=== PATIENT | female | born 1940 | race Caucasian/White ===

== ENCOUNTER 2017-09-21 10:55 | Emergency (ER) | payer MEDICARE, OTHER ==
[~2017-09-21] VITALS: Ht 154.9 cm; Wt 90.7 kg
[~2017-09-21 10:55] MED LIST: ACET325 PO; ASPI325EC; BENZ100A PO; CITA20 PO; Celexa40 MG PO; ESTROGEN; FLUT.05NI; METO50ER; NITR.4SL SL; PANT40 PO; QVAR7.3 G1 IH; VITAMIN B PO; VITAMIN D PO
[2017-09-21 12:31] LABS: BASOPHILS ABSOLUTE AUTO 0.05 K/mm3 (0.00-0.23); BASOPHILS PERCENT AUTO 1 % (0-2); EOSINOPHILS ABSOLUTE AUTO 0.27 K/mm3 (0.00-0.68); EOSINOPHILS PERCENT AUTO 3 % (0-6); Hematocrit 44.9 % (33.0-51.0); Hemoglobin 15.2 g/dL (11.5-16.0); IMMATURE GRAN ABSOLUTE AUTO 0.03 K/mm3 (0.00-0.10); IMMATURE GRAN PERCENT AUTO 0 % (0-1); LYMPHOCYTES ABSOLUTE AUTO 1.68 K/mm3 (0.84-5.20); LYMPHOCYTES PERCENT AUTO 20 % (21-46); MONOCYTES ABSOLUTE AUTO 0.83 K/mm3 (0.16-1.47); MONOCYTES PERCENT AUTO 10 % (4-13); Mean Corpuscular HGB 30.1 pg (26.0-34.0); Mean Corpuscular HGB Conc 33.9 g/dL (31.5-36.5); Mean Corpuscular Volume 89 fL (80-100); Mean Platelet Volume 9.4 fL (9.1-12.4); NEUTROPHILS ABSOLUTE AUTO 5.71 K/mm3 (1.96-9.15); NEUTROPHILS PERCENT AUTO 67 % (41-73); Platelet Count 321 K/mm3 (150-400); RDW Coefficient Variation 13.5 % (11.7-14.2); RDW Standard Deviation 43.8 fL (35.1-46.3); Red Blood Cell Count 5.05 M/mm3 (3.80-5.20); White Blood Cell Count 8.57 K/mm3 (4.00-11.30)
[2017-09-21 13:00] LABS: Troponin I <0.015 ng/mL (0.000-0.040)
[2017-09-21 14:44] LABS: Albumin, Blood 3.8 g/dL (3.4-5.0); Albumin/Globulin Ratio 1.1 (0.8-1.8); Alk Phos 96 U/L (50-136); Anion Gap 9 mmol/L (6-16); Aspartate Aminotrans (AST/SGOT 20 U/L (12-37); Bilirubin, Total 0.5 mg/dL (0.1-1.0); Blood Urea Nitrogen 22 mg/dL (8-24); Bun/Creatinine Ratio 17.6 (12.0-20.0); CO2, Blood 25 mmol/L (21-32); Calcium, Blood 9.2 mg/dL (8.5-10.1); Chloride, Blood 100 mmol/L (98-108); Creatinine, Blood 1.25 mg/dL (0.40-1.00); Globulin, Blood 3.6 g/dL (2.2-4.0); Glomerular Filtration Rate 44 (60-); Glucose, Blood 107 mg/dL (70-99); Potassium, Blood 4.3 mmol/L (3.5-5.5); Sodium, Blood 134 mmol/L (136-145); Total Protein, Blood 7.4 g/dL (6.4-8.2)
[2017-09-21 16:07] LABS: Alanine Aminotransfer (ALT/SGP 13 U/L (12-78)
[2017-09-21] MEDS ORDERED: PRED20 PO (16:09)
== END 2017-09-21 16:30 | disposition home or self-care (01) ==
LOC: ER 10:55
PROVIDERS: Emergency Medicine
DX: R55 Syncope and collapse (principal); J44.9 Chronic obstructive pulmonary disease, unspecified; R05 Cough; Z88.8 Allergy status to other drugs, medicaments and biological substances; Z79.899 Other long term (current) drug therapy; Z87.891 Personal history of nicotine dependence
CPT/HCPCS: 36415; 71046; 80053; 82947; 83880; 84484; 85025; 93005; 93010; 96361; 96374; 99283; J2405; J7030

== ENCOUNTER 2021-12-31 08:09 | Day surgery (SDC) | payer MEDICARE, OTHER ==
[~2021-12-31] VITALS: Ht 154.9 cm; Wt 90.0 kg
[~2021-12-31 08:09] MED LIST changes: +ASPI81CH PO; +AZELASTINE137 MCG/01; +B-121000 MC7 PO; +CELEXA40 M1 PO; +LOSA25 PO; +MONT10T PO; +PRED20 PO; +Ventolin5 MG/1 ML INH; +Vitamin D1000 UNI1 PO
[2021-12-31] MEDS ORDERED: Isosorbide Mono30 MG PO (08:45)
--- NOTE | 2021-12-31 12:30 | NUR ---
AIR FULLY DEPLOYED FROM TR BAND. NO BLEEDING OR HEMATOMA NOTED. VSS. NADN. DAUGHTER AT BEDSIDE. CALL LIGHT WITHIN REACH
--- NOTE | 2021-12-31 12:45 | NUR ---
PT AMBULATES TO RESTROOM AND BACK WITHOUT DIFF. PT DRESSES SELF WITHOUT DIFF. R RADIAL TR BAND REMOVED. CLOTH DOT APPLIED WITH SPLINT. NO BLEEDING NOTED. VSS. PT IV DC'D. CATH INTACT. PRESURRE DSG APPLIED. PT AND DAUGHTER VERBALIZES UNDERSTANDING WRITTEN AND VERBAL INSTRUCTIONS. PT DC TO HOME VIA WC BY DTR.
== END 2021-12-31 12:40 | disposition home or self-care (01) ==
LOC: MHTC 08:09
DX: I20.0 Unstable angina (principal); I12.9 Hypertensive chronic kidney disease with stage 1 through stage 4 chronic kidney disease, or unspecified chronic kidney disease; N18.30 Chronic kidney disease, stage 3 unspecified; J44.9 Chronic obstructive pulmonary disease, unspecified; K21.9 Gastro-esophageal reflux disease without esophagitis; Z87.891 Personal history of nicotine dependence; Z79.82 Long term (current) use of aspirin; Z79.899 Other long term (current) drug therapy
CPT/HCPCS: 76937; 93454; 99152; 99153; C1769; C1887; C1894; J1644; J2250; J3010; J7030; J7040; Q9967

== ENCOUNTER → 2022-10-19 | Outpatient (CLI) | payer MEDICARE, OTHER ==
[~2022-10-19] MED LIST changes: +ACET80; +ALBU8HFA2; +Isosorbide Mono30 MG PO
== END | disposition home or self-care (01) ==
LOC: LAB SHORT 13:43 → PLD 13:43 → LAB 13:43
DX: L72.0 Epidermal cyst (principal); R20.8 Other disturbances of skin sensation
CPT/HCPCS: 88304

== ENCOUNTER 2023-08-17 06:39 | Day surgery (SDC) | payer OTHER ==
[~2023-08-17] VITALS: Ht 154.9 cm; Wt 91.0 kg
[~2023-08-17 06:39] MED LIST changes: +ACET500 PO; -ALBU8HFA2; -ASPI81CH PO; +AZELASTINE137 MCG/06; +Aspir 8181 MG PO; +EFUDEX40 GM TOP; +ESTRADIOL1 MG PO; +FAMO20 PO; +MIRALAX17 GM; +OZEMPIC; +PROTONIX4010 PO; +Triamcinolone A15 G3 TOP; +Ventolin/Prove6.7 GM INH
[2023-08-17] MEDS ORDERED: FORMOTEROL20 MCG/2 M (06:59)
[2023-08-17] MEDS ORDERED: SENNA LAXATIVE8.6 MG PO (07:01)
[2023-08-17] MEDS ORDERED: BREZTRI AEROS10.7 GM (07:02)
[2023-08-17 10:54] VITALS: BP 129/94
--- NOTE | 2023-08-17 11:04 | NUR ---
08/17/23 1104 Jenn Jefferson 0925: CONSULTED DR LIN D/T IRREGULAR HEART RATE, PT DENIES SYMPTOMS OF HEART RACING, LIGHTHEADEDNESS, OR OTHER ISSUES. DR LIN STATES PATIENT WAS IN A-FIB DURING PROCEDURE AND NEEDS TO CONSULT HER PRIMARY CARE DOCTOR TODAY ABOUT THIS ISSUE. APICAL PULSE COUNTED 105 BPM. ON MONITOR PULSE RANGES FROM 80-130 BUT DOES NOT SUSTAIN ANY GREATER THAN 110'S. 0945: MANIPULATIVE THERAPY SPECIALIST IN TO SEE PATIENT D/T PATIENT REPORTING SHE FEELS VERY "STRANGE". PATIENT REPORTS TO CHARGE NURSE THAT SHE JUST FEELS WEAK. CHARGE NURSE ADVISES PATIENT HANG OUT A WHILE WHILE MEDICINE WEARS OFF. 1015: PATIENT ASSISTED TO GET DRESSED, HAD POOR BALANCE AND STUMBLED TWICE IN ROOM, RN CATCHING AND PT SITTING IN CHAIR. MD NOTIFIED. PATIENT TRANSFERRED TO STEP DOWN, STILL DENIES SYPTOMS SUCH HEART RACING, DIFFICULTY BREATHING, OR LIGHTHEADEDNESS. HR REMAINS THE SAME RANGING FROM 80-130 BUT NOT SUSTAINING. 1020: CONSULTED DR LIN D/T CONTINUED WEAKNESS, DR LIN STATES PATIENT CAN HANG OUT A WHILE AND SEE IF IMPROVES. 1028: DISCUSSED ABOVE WITH PATIENT, SHE REPORTS SHE IS FEELING CLOSER TO NORMAL AND WOULD LIKE TO GO HOME. RN ENCOURAGED PATIENT TO CONTACT HER PRIMARY CARE DIRECTED BY DR LIN SOON SHE CAN.
--- NOTE | 2023-08-17 12:03 | NUR ---
08/17/23 1203 Shirley Cutler LATE ENTRY 33ML NORMAL SALINE USED TO ELEVATE COLON POLYPS
== END 2023-08-17 10:30 | disposition home or self-care (01) ==
LOC: ORSCSDS 06:39
PROVIDERS: Internal Medicine Gastroenterology
PROC: 0DBN8ZX Excision of Sigmoid Colon, Via Natural or Artificial Opening Endoscopic, Diagnostic (ICD-10-PCS; principal; 2023-08-17 08:00)
PROC: 0DBH8ZX Excision of Cecum, Via Natural or Artificial Opening Endoscopic, Diagnostic (ICD-10-PCS; principal; 2023-08-17 08:00)
PROC: 0DBK8ZX Excision of Ascending Colon, Via Natural or Artificial Opening Endoscopic, Diagnostic (ICD-10-PCS; principal; 2023-08-17 08:00)
DX: Z12.11 Encounter for screening for malignant neoplasm of colon (principal); Z86.010 Personal history of colon polyps; D12.0 Benign neoplasm of cecum; D12.2 Benign neoplasm of ascending colon; D12.5 Benign neoplasm of sigmoid colon; K63.5 Polyp of colon; K63.89 Other specified diseases of intestine; K57.30 Diverticulosis of large intestine without perforation or abscess without bleeding; I12.9 Hypertensive chronic kidney disease with stage 1 through stage 4 chronic kidney disease, or unspecified chronic kidney disease; N18.30 Chronic kidney disease, stage 3 unspecified; Z87.891 Personal history of nicotine dependence; J45.909 Unspecified asthma, uncomplicated; Z79.899 Other long term (current) drug therapy
CPT/HCPCS: 82947; 88305; J2405; J2704; J7120

== ENCOUNTER 2023-08-22 08:08 | Observation (INO) | payer OTHER ==
[~2023-08-22] VITALS: Ht 154.9 cm; Wt 91.5 kg
[~2023-08-22 08:08] MED LIST changes: +BREZTRI AEROS10.7 GM; +FORMOTEROL20 MCG/2 M; +SENNA LAXATIVE8.6 MG PO
[2023-08-22 08:31] LABS: BASOPHILS ABSOLUTE AUTO 0.04 K/mm3 (0.00-0.23); BASOPHILS PERCENT AUTO 0 % (0-2); EOSINOPHILS ABSOLUTE AUTO 0.42 K/mm3 (0.00-0.68); EOSINOPHILS PERCENT AUTO 5 % (0-6); Hematocrit 34.5 % (33.0-51.0); Hemoglobin 11.3 g/dL (11.5-16.0); IMMATURE GRAN ABSOLUTE AUTO 0.04 K/mm3 (0.00-0.10); IMMATURE GRAN PERCENT AUTO 0 % (0-1); LYMPHOCYTES PERCENT AUTO 23 % (21-46); MONOCYTES ABSOLUTE AUTO 0.56 K/mm3 (0.16-1.47); MONOCYTES PERCENT AUTO 6 % (4-13); Mean Corpuscular HGB 31.8 pg (26.0-34.0); Mean Corpuscular HGB Conc 32.8 g/dL (31.5-36.5); Mean Corpuscular Volume 97 fL (80-100); Mean Platelet Volume 9.4 fL (9.1-12.4); NEUTROPHILS ABSOLUTE AUTO 5.85 K/mm3 (1.96-9.15); NEUTROPHILS PERCENT AUTO 65 % (41-73); Platelet Count 242 K/mm3 (150-400); RDW Coefficient Variation 13.2 % (11.7-14.2); RDW Standard Deviation 47.8 fL (35.1-46.3); Red Blood Cell Count 3.55 M/mm3 (3.80-5.20); White Blood Cell Count 9.01 K/mm3 (4.00-11.30)
[2023-08-22 08:51] LABS: Albumin, Blood 2.9 g/dL (3.4-5.0); Albumin/Globulin Ratio 0.9 (0.8-1.8); Bilirubin, Total 0.3 mg/dL (0.1-1.0); Bun/Creatinine Ratio 17.1 (12.0-20.0); Calcium, Blood 8.2 mg/dL (8.5-10.1); Creatinine, Blood 1.52 mg/dL (0.40-1.00); Globulin, Blood 3.1 g/dL (2.2-4.0)
[2023-08-22 11:06] LABS: BASOPHILS ABSOLUTE AUTO 0.02 K/mm3 (0.00-0.23); BASOPHILS PERCENT AUTO 0 % (0-2); EOSINOPHILS ABSOLUTE AUTO 0.11 K/mm3 (0.00-0.68); EOSINOPHILS PERCENT AUTO 1 % (0-6); Hemoglobin 9.4 g/dL (11.5-16.0); IMMATURE GRAN ABSOLUTE AUTO 0.03 K/mm3 (0.00-0.10); IMMATURE GRAN PERCENT AUTO 0 % (0-1); LYMPHOCYTES ABSOLUTE AUTO 1.54 K/mm3 (0.84-5.20); LYMPHOCYTES PERCENT AUTO 18 % (21-46); MONOCYTES ABSOLUTE AUTO 0.59 K/mm3 (0.16-1.47); MONOCYTES PERCENT AUTO 7 % (4-13); Mean Corpuscular HGB Conc 32.4 g/dL (31.5-36.5); Mean Corpuscular Volume 99 fL (80-100); Mean Platelet Volume 9.4 fL (9.1-12.4); NEUTROPHILS ABSOLUTE AUTO 6.08 K/mm3 (1.96-9.15); NEUTROPHILS PERCENT AUTO 73 % (41-73); Platelet Count 208 K/mm3 (150-400); RDW Coefficient Variation 13.4 % (11.7-14.2); RDW Standard Deviation 48.1 fL (35.1-46.3); Red Blood Cell Count 2.94 M/mm3 (3.80-5.20); White Blood Cell Count 8.37 K/mm3 (4.00-11.30)
[2023-08-22 15:11] VITALS: BP 142/54
[2023-08-22 19:38] VITALS: BP 124/45
--- NOTE | 2023-08-23 04:52 | NUR ---
SHIFT SUMMARY PT ADMIT FOR ACUTE BLOOD LOSS ANEMIA. PT HAD COLONOSCOPY ON 08-17-23 WITH 9 POLYPS REMOVED PRECANCEROUS (ADENOCARCINOMA). PT ARRIVED WITH HGB AT 11.3, THEN DROPPED TO 9.4. PRBC'S ADMINISTERED. SCD'S IN PLACE. PT IS ON TELE AND HAS BEEN RUNNING SB IN THE 50'S. PT IS ON CLEAR LIQUID DIET. POSSIBLY COULD BE CHANGED TO FULL LIQUID DIET WITH NO RED COLORING. PT HAS WET OCCASIONAL COUGH. SHE SLEPT MOST OF THE NIGHT. PT HAS BEEN PLEASANT AND COOPERATIVE WITH HER CARE.
[2023-08-23 05:15] LABS: BASOPHILS ABSOLUTE AUTO 0.03 K/mm3 (0.00-0.23); BASOPHILS PERCENT AUTO 1 % (0-2); EOSINOPHILS ABSOLUTE AUTO 0.35 K/mm3 (0.00-0.68); EOSINOPHILS PERCENT AUTO 5 % (0-6); Hematocrit 31.4 % (33.0-51.0); Hemoglobin 10.5 g/dL (11.5-16.0); IMMATURE GRAN ABSOLUTE AUTO 0.02 K/mm3 (0.00-0.10); IMMATURE GRAN PERCENT AUTO 0 % (0-1); LYMPHOCYTES PERCENT AUTO 32 % (21-46); MONOCYTES ABSOLUTE AUTO 0.54 K/mm3 (0.16-1.47); MONOCYTES PERCENT AUTO 8 % (4-13); Mean Corpuscular HGB 31.4 pg (26.0-34.0); Mean Corpuscular HGB Conc 33.4 g/dL (31.5-36.5); Mean Platelet Volume 10.2 fL (9.1-12.4); NEUTROPHILS ABSOLUTE AUTO 3.48 K/mm3 (1.96-9.15); NEUTROPHILS PERCENT AUTO 53 % (41-73); Platelet Count 208 K/mm3 (150-400); RDW Coefficient Variation 15.8 % (11.7-14.2); RDW Standard Deviation 54.9 fL (35.1-46.3); Red Blood Cell Count 3.34 M/mm3 (3.80-5.20); White Blood Cell Count 6.52 K/mm3 (4.00-11.30)
[2023-08-23 05:22] LABS: Mean Corpuscular Volume 94 fL (80-100)
[2023-08-23 05:45] LABS: Bun/Creatinine Ratio 16.3 (12.0-20.0); Calcium, Blood 8.1 mg/dL (8.5-10.1); Creatinine, Blood 1.23 mg/dL (0.40-1.00); Potassium, Blood 4.2 mmol/L (3.5-5.5)
[2023-08-23 08:05] VITALS: BP 139/56
--- NOTE | 2023-08-23 15:44 | NUR ---
Upon receiving a referral for spiritual care, I visited the patient. She tells me about the traumatic events that led to her hospital admission and the plan of care she is currently undergoing. She shares her fears about being discharged without the bleeding completely managed.She tells me about her 3 grown children and the dtr that lives with her and the amazing support that she provides. THe patient talks about her the of her , Meliton, who 2 yrs ago. He shares about his struggles with PTSD after [place], and his many brutal battles with cancer. We talk about her strong beleif in God and her disinterest in protestant attendance. I normalize her experience, reinforce helpful attitudes and perspectives and provide therapeutic listening, grief support and prayer. Patient responded well and showed signs of reduced stress and an elevated mood. I will continue to remain available to patient and family.
[2023-08-23 18:53] LABS: Hematocrit 33.4 % (33.0-51.0)
[2023-08-23 19:57] VITALS: BP 116/52
[2023-08-24 04:55] LABS: BASOPHILS ABSOLUTE AUTO 0.04 K/mm3 (0.00-0.23); BASOPHILS PERCENT AUTO 1 % (0-2); EOSINOPHILS ABSOLUTE AUTO 0.34 K/mm3 (0.00-0.68); EOSINOPHILS PERCENT AUTO 5 % (0-6); Hematocrit 31.3 % (33.0-51.0); Hemoglobin 10.6 g/dL (11.5-16.0); IMMATURE GRAN ABSOLUTE AUTO 0.02 K/mm3 (0.00-0.10); IMMATURE GRAN PERCENT AUTO 0 % (0-1); LYMPHOCYTES ABSOLUTE AUTO 2.05 K/mm3 (0.84-5.20); LYMPHOCYTES PERCENT AUTO 30 % (21-46); MONOCYTES ABSOLUTE AUTO 0.72 K/mm3 (0.16-1.47); MONOCYTES PERCENT AUTO 11 % (4-13); Mean Corpuscular HGB 31.6 pg (26.0-34.0); Mean Corpuscular HGB Conc 33.9 g/dL (31.5-36.5); Mean Corpuscular Volume 93 fL (80-100); Mean Platelet Volume 9.6 fL (9.1-12.4); NEUTROPHILS ABSOLUTE AUTO 3.64 K/mm3 (1.96-9.15); NEUTROPHILS PERCENT AUTO 53 % (41-73); Platelet Count 213 K/mm3 (150-400); RDW Coefficient Variation 15.3 % (11.7-14.2); RDW Standard Deviation 52.3 fL (35.1-46.3); Red Blood Cell Count 3.35 M/mm3 (3.80-5.20); White Blood Cell Count 6.81 K/mm3 (4.00-11.30)
--- NOTE | 2023-08-24 05:35 | NUR ---
SHIFT SUMMARY PATIENT IS ALERT AND ORIENTED. PATIENT HAS HAD NO ACUTE EVENTS THIS SHIFT. VITAL SIGNS REVIEWED. PATIENTS HGB IS TRENDING UP. DR LIN SAW PATIENT AND STATED HE WANTED HER TO SEE HER OUTPATIENT BUT NO PENDING PROCEDURES AND IS A POTENTIAL DISCHARGE TODAY. PATIENT HAS NOT COMPLAINED OF PAIN, NAUSEA SOB OR VOMMITING THIS SHIFT. PATIENT IS IND IN ROOM. BED IN LOCKED AND LOWEST POSITION. CALL LIGHT IN PLACE. WILL MONITOR UNTIL SHIFT CHANGE.
[2023-08-24 05:37] LABS: Calcium, Blood 8.5 mg/dL (8.5-10.1); Creatinine, Blood 1.2 mg/dL (0.40-1.00)
[2023-08-24 05:51] VITALS: BP 136/55
[2023-08-24 07:37] VITALS: BP 139/59
--- NOTE | 2023-08-24 09:00 | NUR ---
pt laying in bed awake a/ox4, pleasant and cooperative with care, follows commands well, denies pain, lungs are clear t/o, resp even and unlabored, on r/a, hrr, no edema noted, ppp+1, cap refill<3 sec, vs stable, afebrile, piv to lac site is clear and patent, btx4, abd flat soft nontender, voids without diff, skin c/w/d, maew, bennie, call light in reach.
--- NOTE | 2023-08-24 14:45 | NUR ---
pt has been discharged to home, family here to take her home, iv has been removed intact, no new medications, went over instructions, she verbalized understanding, left via wheelchair with nurse in attendence with all her belongings.
== END 2023-08-24 14:37 | disposition home or self-care (01) ==
LOC: ER 08:08 → MEDS 08:09
PROVIDERS: Emergency Medicine; Internal Medicine; ADMIT Family Medicine
DX: K91.840 Postprocedural hemorrhage of a digestive system organ or structure following a digestive system procedure (principal); Y83.8 Other surgical procedures as the cause of abnormal reaction of the patient, or of later complication, without mention of misadventure at the time of the procedure; K62.5 Hemorrhage of anus and rectum; D62 Acute posthemorrhagic anemia; I12.9 Hypertensive chronic kidney disease with stage 1 through stage 4 chronic kidney disease, or unspecified chronic kidney disease; N18.9 Chronic kidney disease, unspecified; J45.909 Unspecified asthma, uncomplicated; Z86.010 Personal history of colon polyps
CPT/HCPCS: 36415; 36430; 80048; 80053; 85014; 85018; 85025; 86850; 86900; 86901; 86923; 94640; 94664; 94760; 99285-25; A9270; G0378; J7030; P9016

== ENCOUNTER 2023-08-27 10:11 | Emergency (ER) | payer OTHER ==
[~2023-08-27] VITALS: Ht 154.9 cm; Wt 90.3 kg
[2023-08-27 11:11] LABS: BASOPHILS ABSOLUTE AUTO 0.04 K/mm3 (0.00-0.23); BASOPHILS PERCENT AUTO 1 % (0-2); EOSINOPHILS PERCENT AUTO 4 % (0-6); Hematocrit 36.6 % (33.0-51.0); Hemoglobin 12.2 g/dL (11.5-16.0); IMMATURE GRAN ABSOLUTE AUTO 0.04 K/mm3 (0.00-0.10); IMMATURE GRAN PERCENT AUTO 1 % (0-1); LYMPHOCYTES ABSOLUTE AUTO 2.97 K/mm3 (0.84-5.20); LYMPHOCYTES PERCENT AUTO 35 % (21-46); MONOCYTES PERCENT AUTO 9 % (4-13); Mean Corpuscular HGB Conc 33.3 g/dL (31.5-36.5); Mean Corpuscular Volume 93 fL (80-100); Mean Platelet Volume 9.5 fL (9.1-12.4); NEUTROPHILS ABSOLUTE AUTO 4.38 K/mm3 (1.96-9.15); NEUTROPHILS PERCENT AUTO 51 % (41-73); Platelet Count 330 K/mm3 (150-400); RDW Coefficient Variation 14.8 % (11.7-14.2); RDW Standard Deviation 50.6 fL (35.1-46.3); Red Blood Cell Count 3.94 M/mm3 (3.80-5.20); White Blood Cell Count 8.53 K/mm3 (4.00-11.30)
[2023-08-27 11:28] LABS: Albumin, Blood 3.6 g/dL (3.4-5.0); Bilirubin, Total 0.4 mg/dL (0.1-1.0); Calcium, Blood 9.3 mg/dL (8.5-10.1); Creatinine, Blood 1.26 mg/dL (0.40-1.00); Globulin, Blood 3.6 g/dL (2.2-4.0); Total Protein, Blood 7.2 g/dL (6.4-8.2)
[2023-08-27 15:33] LABS: Influenza A, PCR NEGATIVE (NEGATIVE); Influenza B, PCR NEGATIVE (NEGATIVE); Resp Syncytial Virus, PCR NEGATIVE (NEGATIVE); SARS-Cov-2 (COVID-19) PCR, MMC NEGATIVE (NEGATIVE)
[2023-08-27 16:30] VITALS: BP 122/49
== END 2023-08-27 16:55 | disposition home or self-care (01) ==
LOC: ER 10:11
PROVIDERS: Emergency Medicine; Physician Assistant
DX: R55 Syncope and collapse (principal); I12.9 Hypertensive chronic kidney disease with stage 1 through stage 4 chronic kidney disease, or unspecified chronic kidney disease; N18.30 Chronic kidney disease, stage 3 unspecified; J45.909 Unspecified asthma, uncomplicated; Z87.891 Personal history of nicotine dependence; Z79.51 Long term (current) use of inhaled steroids; Z79.899 Other long term (current) drug therapy; Z88.8 Allergy status to other drugs, medicaments and biological substances; Z91.048 Other nonmedicinal substance allergy status
CPT/HCPCS: 0241U; 71046; 80053; 84484; 85025; 93005; 93010; 96361; 96374; 99284-25; J2405; J7030

== ENCOUNTER 2024-08-18 10:20 | Day surgery (SDC) | payer OTHER ==
[~2024-08-18] VITALS: Ht 154.9 cm; Wt 90.6 kg
[~2024-08-18 10:20] MED LIST changes: +Lactated Ringer's 1,000 ML IV ONE; +propofoL 50 ML IV ONE
[2024-08-18] MEDS ORDERED: BENZ100A (11:45)
[2024-08-18] MEDS ORDERED: VITAMIN D5000 UNIT (11:47)
[2024-08-18] MEDS ORDERED: DAPAGLIFLOZIN5 MG (11:48)
[2024-08-18] MEDS ORDERED: [UNRECOGNIZED DRUG - OTHER] (11:48)
[2024-08-18] MEDS ORDERED: FLONASE ALLERG9.9 M2 (11:50)
[2024-08-18] MEDS ORDERED: FORMOTEROL20 MCG/21 (11:52)
[2024-08-18] MEDS ORDERED: FURO40 (11:52)
[2024-08-18] MEDS ORDERED: GLYCOPYRROLATE (11:53)
[2024-08-18] MEDS ORDERED: GUAI600T33 (11:54)
[2024-08-18] MEDS ORDERED: MONTELUKAST SOD10 M1 (11:55)
[2024-08-18] MEDS ORDERED: Isosorbide Mono30 MG (11:55)
[2024-08-18] MEDS ORDERED: ALBU8HFA2 (11:56)
[2024-08-18] MEDS ORDERED: NITROGLYCERIN0.4 M3 (11:56)
[2024-08-18] MEDS ORDERED: Lactated Ringer's 1,000 ML IV ONE (12:28)
[2024-08-18] MEDS ORDERED: propofoL 50 ML IV ONE (13:14)
[2024-08-18] MEDS ORDERED: Glycopyrrolate 0.2 MG/ML 1MLVIAL ONE (13:14)
[2024-08-18 14:15] VITALS: BP 128/68
== END 2024-08-18 14:14 | disposition home or self-care (01) ==
LOC: ORSCSDS 10:20
PROVIDERS: Internal Medicine Gastroenterology
PROC: 0DBK8ZX Excision of Ascending Colon, Via Natural or Artificial Opening Endoscopic, Diagnostic (ICD-10-PCS; principal; 2024-08-18 12:00)
PROC: 0D757ZZ Dilation of Esophagus, Via Natural or Artificial Opening (ICD-10-PCS; principal; 2024-08-18 12:00)
PROC: 0DB68ZX Excision of Stomach, Via Natural or Artificial Opening Endoscopic, Diagnostic (ICD-10-PCS; principal; 2024-08-18 12:00)
DX: K21.9 Gastro-esophageal reflux disease without esophagitis (principal); Z12.11 Encounter for screening for malignant neoplasm of colon; Z86.0101 Personal history of adenomatous and serrated colon polyps; D12.2 Benign neoplasm of ascending colon; R13.14 Dysphagia, pharyngoesophageal phase; K31.9 Disease of stomach and duodenum, unspecified; K57.30 Diverticulosis of large intestine without perforation or abscess without bleeding; Z87.891 Personal history of nicotine dependence; I12.9 Hypertensive chronic kidney disease with stage 1 through stage 4 chronic kidney disease, or unspecified chronic kidney disease; N18.32 Chronic kidney disease, stage 3b; J44.89 Other specified chronic obstructive pulmonary disease; F41.9 Anxiety disorder, unspecified; F32.A Depression, unspecified; Z79.899 Other long term (current) drug therapy; L53.8 Other specified erythematous conditions
CPT/HCPCS: 88305; 88342; J2704; J7120

== ENCOUNTER 2025-06-25 11:05 | Emergency (ER) | payer OTHER ==
[~2025-06-25] VITALS: Ht 154.9 cm; Wt 88.5 kg
[~2025-06-25 11:05] MED LIST changes: +ALBU8HFA2; +BENZ100A; +DAPAGLIFLOZIN5 MG; +FLONASE ALLERG9.9 M2; +FORMOTEROL20 MCG/21; +FURO40; +GLYCOPYRROLATE; +GUAI600T33; +Isosorbide Mono30 MG; -Lactated Ringer's 1,000 ML IV ONE; +MONTELUKAST SOD10 M1; +NITROGLYCERIN0.4 M3; +VITAMIN D5000 UNIT; +[UNRECOGNIZED DRUG - OTHER]; -propofoL 50 ML IV ONE
[2025-06-25 11:41] LABS: BASOPHILS ABSOLUTE AUTO 0.04 K/mm3 (0.00-0.23); BASOPHILS PERCENT AUTO 0 % (0-2); EOSINOPHILS ABSOLUTE AUTO 0.24 K/mm3 (0.00-0.68); EOSINOPHILS PERCENT AUTO 3 % (0-6); Hematocrit 41.1 % (33.0-51.0); Hemoglobin 13.7 g/dL (11.5-16.0); IMMATURE GRAN ABSOLUTE AUTO 0.03 K/mm3 (0.00-0.10); IMMATURE GRAN PERCENT AUTO 0 % (0-1); LYMPHOCYTES ABSOLUTE AUTO 2.41 K/mm3 (0.84-5.20); LYMPHOCYTES PERCENT AUTO 26 % (21-46); MONOCYTES ABSOLUTE AUTO 1.11 K/mm3 (0.16-1.47); MONOCYTES PERCENT AUTO 12 % (4-13); Mean Corpuscular HGB Conc 33.3 g/dL (31.5-36.5); Mean Corpuscular Volume 93 fL (80-100); NEUTROPHILS ABSOLUTE AUTO 5.53 K/mm3 (1.96-9.15); NEUTROPHILS PERCENT AUTO 59 % (41-73); NRBC ABSOLUTE 0.00 K/mm3 (0.00-0.02); NRBC Auto 0.0 /100 WBC (0.0-0.2); Platelet Count 305 K/mm3 (150-400); RDW Coefficient Variation 13.6 % (11.7-14.2); RDW Standard Deviation 45.6 fL (35.1-46.3)
[2025-06-25 12:20] LABS: Alanine Aminotransfer (ALT/SGP 11.0 U/L (12-78); Albumin, Blood 3.4 g/dL (3.4-5.0); Albumin/Globulin Ratio 1.0 (0.8-1.8); Anion Gap 10.0 mmol/L (3-11); Aspartate Aminotrans (AST/SGOT 12.0 U/L (12-37); Bilirubin, Total 0.7 mg/dL (0.1-1.0); Blood Urea Nitrogen 17.0 mg/dL (8-24); CO2, Blood 21.0 mmol/L (21-32); Calcium, Blood 9.0 mg/dL (8.5-10.1); Chloride, Blood 112.0 mmol/L (98-108); Creatinine, Blood 1.37 mg/dL (0.40-1.00); Globulin, Blood 3.3 g/dL (2.2-4.0); Glucose, Blood 111.0 mg/dL (70-99); Potassium, Blood 3.9 mmol/L (3.5-5.5); Sodium, Blood 139.0 mmol/L (136-145); Total Protein, Blood 6.7 g/dL (6.4-8.2)
[2025-06-25] MEDS ORDERED: NS 1,000 ML IV SCH (14:35)
[2025-06-25] MEDS ORDERED: METOPROLOL SUCC25 MG PO (15:17)
[2025-06-25 16:09] VITALS: BP 100/54
[2025-06-25] MEDS ORDERED: XARELTO20 MG PO (16:54)
[2025-06-25] MEDS ORDERED: Toprol Xl25 MG PO (16:59)
== END 2025-06-25 17:27 | disposition home or self-care (01) ==
LOC: ER 11:05
PROVIDERS: Physician Assistant
DX: I48.91 Unspecified atrial fibrillation (principal); J45.909 Unspecified asthma, uncomplicated; Z87.891 Personal history of nicotine dependence; Z90.49 Acquired absence of other specified parts of digestive tract
CPT/HCPCS: 80053; 83690; 84484; 85025; 93005; 93010; 99285-25; A9270; J7030

== ENCOUNTER 2025-08-07 11:21 | Emergency (ER) | payer OTHER ==
[~2025-08-07] VITALS: Ht 154.9 cm; Wt 88.9 kg
[~2025-08-07 11:21] MED LIST changes: +METOPROLOL SUCC25 MG PO; +Toprol Xl25 MG PO; +XARELTO20 MG PO
[2025-08-07 12:12] LABS: BASOPHILS ABSOLUTE AUTO 0.03 K/mm3 (0.00-0.23); BASOPHILS PERCENT AUTO 1 % (0-2); EOSINOPHILS ABSOLUTE AUTO 0.32 K/mm3 (0.00-0.68); EOSINOPHILS PERCENT AUTO 5 % (0-6); Hematocrit 37.6 % (33.0-51.0); Hemoglobin 12.5 g/dL (11.5-16.0); IMMATURE GRAN ABSOLUTE AUTO 0.02 K/mm3 (0.00-0.10); IMMATURE GRAN PERCENT AUTO 0 % (0-1); LYMPHOCYTES ABSOLUTE AUTO 1.74 K/mm3 (0.84-5.20); LYMPHOCYTES PERCENT AUTO 28 % (21-46); MONOCYTES ABSOLUTE AUTO 0.63 K/mm3 (0.16-1.47); MONOCYTES PERCENT AUTO 10 % (4-13); Mean Corpuscular HGB Conc 33.2 g/dL (31.5-36.5); Mean Corpuscular Volume 93 fL (80-100); NEUTROPHILS ABSOLUTE AUTO 3.47 K/mm3 (1.96-9.15); NEUTROPHILS PERCENT AUTO 56 % (41-73); NRBC ABSOLUTE 0.00 K/mm3 (0.00-0.02); NRBC Auto 0.0 /100 WBC (0.0-0.2); Platelet Count 239 K/mm3 (150-400); RDW Coefficient Variation 13.6 % (11.7-14.2); RDW Standard Deviation 46.5 fL (35.1-46.3)
[2025-08-07] MEDS ORDERED: Metoclopramide HCl 5MG / ML 2ML Vial IV ONE (12:20)
[2025-08-07] MEDS ORDERED: Morphine Sulfate 4 MG/1 ML Injection IV ONE (12:20)
[2025-08-07] MEDS ORDERED: NS 500 ML IV SCH (12:20)
[2025-08-07] MEDS ORDERED: DiphenhydrAMINE HCl 50 MG/ML 1ML Vial IV ONE (12:20)
[2025-08-07 12:41] LABS: Alanine Aminotransfer (ALT/SGP 9.0 U/L (12-78); Albumin, Blood 3.3 g/dL (3.4-5.0); Albumin/Globulin Ratio 1.0 (0.8-1.8); Anion Gap 9.0 mmol/L (3-11); Aspartate Aminotrans (AST/SGOT 7.0 U/L (12-37); Bilirubin, Total 0.4 mg/dL (0.1-1.0); Blood Urea Nitrogen 14.0 mg/dL (8-24); CO2, Blood 23.0 mmol/L (21-32); Calcium, Blood 8.3 mg/dL (8.5-10.1); Chloride, Blood 110.0 mmol/L (98-108); Creatinine, Blood 1.38 mg/dL (0.40-1.00); Globulin, Blood 3.2 g/dL (2.2-4.0); Glucose, Blood 89.0 mg/dL (70-99); Potassium, Blood 4.1 mmol/L (3.5-5.5); Sodium, Blood 138.0 mmol/L (136-145); Total Protein, Blood 6.5 g/dL (6.4-8.2)
[2025-08-07] MEDS ORDERED: REGLAN1013 PO (13:07)
[2025-08-07 13:57] VITALS: BP 159/84
== END 2025-08-07 14:02 | disposition home or self-care (01) ==
LOC: ER 11:21
PROVIDERS: Student in an Organized Health Care Education/Training Program
DX: S06.0XAA Concussion with loss of consciousness status unknown, initial encounter (principal); G44.309 Post-traumatic headache, unspecified, not intractable; R55 Syncope and collapse; I10 Essential (primary) hypertension; I12.9 Hypertensive chronic kidney disease with stage 1 through stage 4 chronic kidney disease, or unspecified chronic kidney disease; N18.30 Chronic kidney disease, stage 3 unspecified; J45.909 Unspecified asthma, uncomplicated; Z87.891 Personal history of nicotine dependence; W18.30XA Fall on same level, unspecified, initial encounter; Z79.51 Long term (current) use of inhaled steroids; Z79.899 Other long term (current) drug therapy; Z91.048 Other nonmedicinal substance allergy status
CPT/HCPCS: 70450; 71046; 80053; 83690; 83880; 84484; 85025; 93005; 93010; 96374; 96375; 99284-25; J1200; J2270; J2765; J7030